=== PATIENT | female | born 1995 | race Two or more races ===

== ENCOUNTER 2019-12-30 22:24 | Outpatient (CLI) | payer OTHER ==
[2019-12-30] MEDS ORDERED: PRENATAL TABLE1 EAC1 PO (23:01)
[2019-12-31] MEDS ORDERED: MACROBID 100 M100 MG PO (09:21)
== END 2019-12-31 10:09 | disposition home or self-care (01) ==
LOC: OBS/DEL 22:24
PROVIDERS: ATTEND Obstetrics & Gynecology
DX: O23.42 Unspecified infection of urinary tract in pregnancy, second trimester (principal)

== ENCOUNTER 2020-03-16 22:29 | Outpatient (CLI) | payer OTHER ==
[~2020-03-16 22:29] MED LIST: MACROBID 100 M100 MG PO; PRENATAL TABLE1 EAC1 PO
== END 2020-03-17 10:40 | disposition home or self-care (01) ==
LOC: OBS/DEL 22:29
PROVIDERS: ATTEND Obstetrics & Gynecology
DX: O47.1 False labor at or after 37 completed weeks of gestation (principal)

== ENCOUNTER 2020-03-21 06:21 | Inpatient (IN) | payer OTHER ==
[~2020-03-21] VITALS: Ht 157.5 cm; Wt 2.7 kg
[2020-03-24] MEDS ORDERED: Tylenol #3 PO (09:41)
== END 2020-03-24 10:54 | disposition home or self-care (01) | DRG 788 ==
LOC: OB/GYN 06:21 → LDR 06:21 → OB/GYN 21:37
PROVIDERS: ADMIT Obstetrics & Gynecology; ATTEND Obstetrics & Gynecology
PROC: 10907ZC Drainage of Amniotic Fluid, Therapeutic from Products of Conception, Via Natural or Artificial Opening (ICD-10-PCS; 2020-03-21)
PROC: 3E033VJ Introduction of Other Hormone into Peripheral Vein, Percutaneous Approach (ICD-10-PCS; 2020-03-21)
PROC: 4A1HXFZ Monitoring of Products of Conception, Cardiac Rhythm, External Approach (ICD-10-PCS; 2020-03-21)
PROC: 10D00Z1 Extraction of Products of Conception, Low, Open Approach (ICD-10-PCS; principal; 2020-03-21 18:00)
DX: O62.1 Secondary uterine inertia (principal); O67.9 Intrapartum hemorrhage, unspecified; Z3A.38 38 weeks gestation of pregnancy; Z37.0 Single live birth